=== PATIENT | male | born 2000 | race American Indian/Alaskan Native ===

== ENCOUNTER 2019-03-22 19:41 | Emergency (ER) | payer SELFPAY ==
--- NOTE | 2019-03-22 21:20 | Emergency Department Report ---
HPI - General Chief Complaint: Urogenital-Male Time Seen by Provider: 03/22/19 21:02 - HPI HPI: Room 2 The pt is a 18 y/o M p/w a cc of scrotal swelling. Pt p/w scrotal/groin swelling x 1 week. Pt has a h/o the same 4 months ago but states it spontaneously resolved. Swelling returned 1 week ago. Pt denies n/v. last BM was 2-3 days ago and this is normal per family member at bedside. No fever ED Past Medical Hx - Past Medical History Previous Medical History?: Yes Additional medical history: Autism - Surgical History Past Surgical History?: No - Family History Family history: no significant - Social History Smoking Status: Never Smoker Substance Use Type: None - Medications Home Medications: Home Medications Medication Instructions Recorded Confirmed Last Taken Type traMADol [Ultram] 50 mg PO Q6HR PRN #10 tablet 03/22/19 Unknown Rx Docusate Sodium [Colace] 100 mg PO BID PRN #60 capsule 03/23/19 Unknown Rx ED Review of Systems ROS: Stated complaint: LARGE INGUINAL HERNIA/SWOLLEN TESTICLE Other details as noted in HPI Constitutional: denies: fever Eyes: denies: eye pain ENT: denies: throat pain Respiratory: no symptoms reported Cardiovascular: denies: chest pain Endocrine: no symptoms reported Gastrointestinal: denies: abdominal pain, nausea, vomiting Genitourinary: testicular pain Musculoskeletal: denies: back pain Neurological: denies: headache Physical Exam - Physical Exam Vital Signs: Vital Signs 03/22/19 03/22/19 19:49 20:07 Temperature 98.3 F Pulse Rate 115 H Respiratory 20 20 Rate O2 Sat by Pulse 100 Oximetry Physical Exam: GEN: WN autistic male lying on stretcher in NAD HEENT: EOMI NECK: Trachea midline LUNGS: No resp Distress CV: RRR no m/r/g ABD: S/NT/ND SKIN: No Diaphoresis NEURO: GCS 15 MS: no evidence of acute injury : Swelling in scrotum c/w inguinal hernia. Appears freely mobile and easily reducible ED Course Vital Signs 03/22/19 03/22/19 19:49 20:07 Temperature 98.3 F Pulse Rate 115 H Respiratory 20 20 Rate O2 Sat by Pulse 100 Oximetry ED Medical Decision Making - Lab Data Result diagrams: 03/22/19 21:20 03/22/19 21:20 - Radiology Data Radiology results: report reviewed (CT abd/pel, testicular u/s), image reviewed (CT abd/pel, testicular u/s) [facility] [address] [place] [address] Cat Scan Report Signed Patient: HARVINDER REYES MR#: [id number] : 2000 Acct:[id number] Age/Sex: 18 / M ADM Date: 03/22/19 Loc: ED Attending Dr: Ordering Physician: JESS DENT MD Date of Service: 03/22/19 Procedure(s): CT abdomen pelvis w con Accession Number(s): [id number] cc: JESS DENT MD CT ABDOMEN AND PELVIS WITH CONTRAST INDICATION / CLINICAL INFORMATION: right groin pain, scrotal swelling. TECHNIQUE: Axial CT images were obtained through the abdomen and pelvis after 100 mL Omnipaque [address] scans at this location are performed using CT dose reduction for ALARA by means of automated exposure control. COMPARISON: Ultrasound scrotum dated 03/22/19 FINDINGS: LOWER CHEST: No significant abnormality. LIVER: No significant abnormality. GALLBLADDER: Contracted. BILE DUCTS: No significant abnormality. PANCREAS: No significant abnormality. SPLEEN: No significant abnormality. ADRENALS: No significant abnormality. RIGHT KIDNEY and URETER: No significant abnormality. LEFT KIDNEY and URETER: No significant abnormality. STOMACH and SMALL BOWEL: Stomach is moderately distended with food material. No small bowel dilation. There are nondilated loops of small bowel within a very large right inguinal hernia. Small bowel mesentery and mesenteric vessels are also included in the hernia sac. COLON: Moderate amount of fecal material throughout the colon and rectum. APPENDIX: No significant abnormality. PERITONEUM: No free fluid. No free air. No fluid collection. LYMPH NODES: No significant adenopathy. AORTA and ARTERIES: No significant abnormality. IVC and VEINS: No significant abnormality. URINARY BLADDER: No significant abnormality. REPRODUCTIVE ORGANS: No significant abnormality. ADDITIONAL FINDINGS: None. SKELETAL SYSTEM: No significant abnormality. IMPRESSION: 1. Very large right inguinal hernia containing multiple loops of nondilated small bowel. No bowel obstruction. Signer Name: Annalisa Burgos MD Signed: 03/22/2019 11:21 PM Workstation Name: [id number] Transcribed By: DT Dictated By: Evans Burgos MD Electronically Authenticated By: Evans Burgos MD Signed Date/Time: 03/22/192320 DD/ 17 TD/TT: [facility] [address] [place] [address] Ultrasound Report Signed Patient: HARVINDER REYES MR#: [id number] : 2000 Acct:[id number] Age/Sex: 18 / M ADM Date: 03/22/19 Loc: ED Attending Dr: Ordering Physician: JESS DENT MD Date of Service: 03/22/19 Procedure(s): US testicular doppler comp Accession Number(s): [id number] cc: JESS DENT MD ULTRASOUND SCROTUM INDICATION / CLINICAL INFORMATION: groin pain. COMPARISON: None available. FINDINGS -- RIGHT TESTIS: Size = 2.9 x 2.2 x 4.0 cm. - Appearance: No significant abnormality. - Cyst or Mass: None. - Color Doppler Flow: No significant abnormality. EPIDIDYMIS: No significant abnormality. HYDROCELE: None. VARICOCELE: None demonstrated. FINDINGS -- LEFT TESTIS: Size = 3.1 x 2.0 x 3.7 cm. - Appearance: No significant abnormality. - Cyst or Mass: None. - Color Doppler Flow: No significant abnormality. EPIDIDYMIS: No significant abnormality. HYDROCELE: Tiny hydrocele. VARICOCELE: None demonstrated. ADDITIONAL FINDINGS: None. IMPRESSION: 1. Tiny left hydrocele. 2. No sonographic evidence for testicular torsion. Signer Name: Annalisa Burgos MD Signed: 03/22/2019 10:40 PM Workstation Name: [id number] Transcribed By: DT Dictated By: Evans Burgos MD Electronically Authenticated By: Evans Burgos MD Signed Date/Time: 03/22/192239 DD/ 37 TD/TT: - Differential Diagnosis inguinal hernia, epididymitis Critical care attestation.: If time is entered above; I have spent that time in minutes in the direct care of this critically ill patient, excluding procedure time. ED Disposition Clinical Impression: Inguinal hernia Disposition: DC-01 TO HOME OR SELFCARE Is pt being admited?: No Does the pt Need Aspirin: No Condition: Stable Instructions: Inguinal Hernia (ED) Prescriptions: Docusate Sodium [Colace] 100 mg PO BID PRN #60 capsule PRN Reason: Constipation traMADol [Ultram] 50 mg PO Q6HR PRN #10 tablet PRN Reason: Pain Referrals: RIAN QUIÑONEZ DO [Staff Physician] - [facility] (Dr Quiñonez is a surgeon. Please follow up with her for further evaluation of your Inguinal hernia) Time of Disposition: 00:44
[2019-03-22 21:36] LABS: Basophils % (Auto) 1.1 % (0.0-1.8); Eosinophils # (Auto) 0.4 K/mm3 (0.0-0.4); Hematocrit 41.3 % (35.5-45.6); Hemoglobin 13.8 gm/dl (11.8-15.2); Lymphocytes # (Auto) 1.4 K/mm3 (1.2-5.4); Lymphocytes % (Auto) 32.1 % (13.4-35.0); Mean Corpuscular HGB Conc 33 % (32-34); Mean Corpuscular Volume 82 fl (84-94); Monocytes # (Auto) 0.5 K/mm3 (0.0-0.8); Monocytes % (Auto) 11.2 % (0.0-7.3); Platelet Count 204 K/mm3 (140-440); Red Blood Count 5.05 M/mm3 (3.65-5.03); Red Cell Distribution Width 13.8 % (13.2-15.2)
[2019-03-22 21:58] LABS: Alanine Aminotransferase 8 units/L (7-56); Albumin 4.2 g/dL (3.9-5); BUN/Creatinine Ratio 16; Blood Urea Nitrogen 11 mg/dL (9-20); Calcium 8.8 mg/dL (8.4-10.2); Hemolysis Index 5
--- NOTE | 2019-03-22 22:44 | Ultrasound Report ---
ULTRASOUND SCROTUM INDICATION / CLINICAL INFORMATION: groin pain. COMPARISON: None available. FINDINGS -- RIGHT TESTIS: Size = 2.9 x 2.2 x 4.0 cm. - Appearance: No significant abnormality. - Cyst or Mass: None. - Color Doppler Flow: No significant abnormality. EPIDIDYMIS: No significant abnormality. HYDROCELE: None. VARICOCELE: None demonstrated. FINDINGS -- LEFT TESTIS: Size = 3.1 x 2.0 x 3.7 cm. - Appearance: No significant abnormality. - Cyst or Mass: None. - Color Doppler Flow: No significant abnormality. EPIDIDYMIS: No significant abnormality. HYDROCELE: Tiny hydrocele. VARICOCELE: None demonstrated. ADDITIONAL FINDINGS: None. IMPRESSION: 1. Tiny left hydrocele. 2. No sonographic evidence for testicular torsion. Signer Name: Annalisa Burgos MD Signed: 03/22/2019 10:40 PM Workstation Name: [id number]
--- NOTE | 2019-03-22 23:26 | Cat Scan Report ---
CT ABDOMEN AND PELVIS WITH CONTRAST INDICATION / CLINICAL INFORMATION: right groin pain, scrotal swelling. TECHNIQUE: Axial CT images were obtained through the abdomen and pelvis after 100 mL Omnipaque [address] scans at this location are performed using CT dose reduction for ALARA by means of automated exposure control. COMPARISON: Ultrasound scrotum dated 03/22/19 FINDINGS: LOWER CHEST: No significant abnormality. LIVER: No significant abnormality. GALLBLADDER: Contracted. BILE DUCTS: No significant abnormality. PANCREAS: No significant abnormality. SPLEEN: No significant abnormality. ADRENALS: No significant abnormality. RIGHT KIDNEY and URETER: No significant abnormality. LEFT KIDNEY and URETER: No significant abnormality. STOMACH and SMALL BOWEL: Stomach is moderately distended with food material. No small bowel dilation. There are nondilated loops of small bowel within a very large right inguinal hernia. Small bowel mes entery and mesenteric vessels are also included in the hernia sac. COLON: Moderate amount of fecal material throughout the colon and rectum. APPENDIX: No significant abnormality. PERITONEUM: No free fluid. No free air. No fluid collection. LYMPH NODES: No significant adenopathy. AORTA and ARTERIES: No significant abnormality. IVC and VEINS: No significant abnormality. URINARY BLADDER: No significant abnormality. REPRODUCTIVE ORGANS: No significant abnormality. ADDITIONAL FINDINGS: None. SKELETAL SYSTEM: No significant abnormality. IMPRESSION: 1. Very large right inguinal hernia containing multiple loops of nondilated small bowel. No bowel obs truction. Signer Name: Annalisa Burgos MD Signed: 03/22/2019 11:21 PM Workstation Name: [id number]
[2019-03-23 00:28] LABS: Bilirubin,Urine NEG (Negative); Blood,Urine NEG (Negative); Color,Urine Yellow (Yellow); Mucus,Urine FEW /HPF; Protein,Urine <15 mg/dL mg/dL (Negative)
[2019-03-23 05:52] VITALS: BP 108/71
== END 2019-03-23 01:00 | disposition home or self-care (01) ==
LOC: EDBD → ED 19:41
DX: K40.90 Unilateral inguinal hernia, without obstruction or gangrene, not specified as recurrent (principal); F84.0 Autistic disorder
CPT/HCPCS: 36415; 74177; 80053; 81001; 85025; 93975; 99284; Q9967

== ENCOUNTER 2019-03-23 06:57 | Emergency (ER) | payer SELFPAY ==
[2019-03-23 07:38] VITALS: BP 122/68
--- NOTE | 2019-03-23 07:58 | Emergency Department Report ---
ED Psych HPI - General Chief Complaint: Psych Stated Complaint: MH Time Seen by Provider: 03/23/19 07:49 Source: patient, family Mode of arrival: Ambulatory Limitations: Other (autism) - History of Present Illness Initial Comments: 18-year-old male with a past medical history of autism presents with his sister for psychiatric evaluation. Patient was just seen last night for a reducible inguinal hernia and discharged at 5:50 AM. While in the waiting room the sister states that he had a violent outbursts and he was cussing, hitting his head, exhibiting threatening behavior. Since being back in the department he is calm and cooperative. Suspect that patient and sister homeless. - Related Data Previous Rx's Medication Instructions Recorded Last Taken Type traMADol [Ultram] 50 mg PO Q6HR PRN #10 tablet 03/22/19 Unknown Rx Docusate Sodium [Colace] 100 mg PO BID PRN #60 capsule 03/23/19 Unknown Rx Allergies Allergy/AdvReac Type Severity Reaction Status Date / Time No Known Allergies Allergy Unverified 03/22/19 19:56 ED Review of Systems ROS: Stated complaint: MH Other details as noted in HPI Comment: All other systems reviewed and negative ED Past Medical Hx - Past Medical History Previous Medical History?: Yes Additional medical history: Autism - Surgical History Past Surgical History?: No - Social History Smoking Status: Never Smoker Substance Use Type: None - Medications Home Medications: Home Medications Medication Instructions Recorded Confirmed Last Taken Type traMADol [Ultram] 50 mg PO Q6HR PRN #10 tablet 03/22/19 Unknown Rx Docusate Sodium [Colace] 100 mg PO BID PRN #60 capsule 03/23/19 Unknown Rx ED Physical Exam - General Limitations: No Limitations - Other Other exam information: Gen.: No acute distress Head: Atraumatic Eyes: Normal appearance ENT: Moist mucous membranes Neck: Normal appearance, no posterior midline tenderness, no meningismus Chest: Clear to auscultation bilaterally Cardiovascular: Regular rate and rhythm Abdomen: Normal appearance, soft, nontender, no rebound or guarding, normal bowel sounds Back: Normal appearance, nontender Extremity: Full range of motion, normal appearance Neuro: Alert, clear speech, no focal motor or sensory deficit Psychiatric: Appropriate Skin: No rash ED Course Vital Signs 03/23/19 07:37 Temperature 98.1 F Pulse Rate 82 Respiratory 16 Rate Blood Pressure 122/68 [Right] O2 Sat by Pulse 97 Oximetry - Consultations Consultation #1: 03/23/19 07:59 mental health eval requested, [id number] not signed 03/23/19 08:36 outpatient resources for autism provided by [facility] ED Medical Decision Making - Medical Decision Making Patient presents with autism with an episode of negative behavior. History of autism and acting appropriately at this time. Patient given outpatient resources provided by [facility]. - Differential Diagnosis autism Critical Care Time: No Critical care attestation.: If time is entered above; I have spent that time in minutes in the direct care of this critically ill patient, excluding procedure time. ED Disposition Clinical Impression: Autism Disposition: DC-01 TO HOME OR SELFCARE Is pt being admited?: No Does the pt Need Aspirin: No Condition: Stable Instructions: Autism (ED) Additional Instructions: Follow-up with the resources provided by [facility]. Return if symptoms worsen as indicated by your discharge instructions. Referrals: outpatient, resources [Other] - 3-5 Days Time of Disposition: 08:37
== END 2019-03-23 08:51 | disposition home or self-care (01) ==
LOC: EDBD → EEVIPCON 06:57 → ED 06:57
DX: F84.0 Autistic disorder (principal)

== ENCOUNTER 2019-04-12 12:27 | Emergency (ER) | payer MEDICAID ==
--- NOTE | 2019-04-12 13:02 | Emergency Department Report ---
Blank Doc - Documentation Documentation: This is a 19-year-old male that presents with being aggressive. This initial assessment/diagnostic orders/clinical plan/treatment(s) is/are subject to change based on patient's health status, clinical progression and re- assessment by fellow clinical providers in the ED. Further treatment and workup at subsequent clinical providers discretion. Patient/guardians urged not to elope from the ED as their condition may be serious if not clinically assessed and managed. Initial orders include: 1- Patient sent to MAIN ED for further evaluation and treatment 2- clerical supervisor was notified to have patient be brought back [facility]. 3- RN was notified to keep patient as close range and observation until room available
[2019-04-12 15:31] LABS: BUN/Creatinine Ratio 13; Blood Urea Nitrogen 9 mg/dL (9-20); Calcium 9.4 mg/dL (8.4-10.2); Hemolysis Index 14
[2019-04-12 15:38] LABS: Basophils % (Auto) 0.6 % (0.0-1.8); Eosinophils % (Auto) 5.3 % (0.0-4.3); Hematocrit 46.5 % (35.5-45.6); Hemoglobin 15.2 gm/dl (11.8-15.2); Lymphocytes % (Auto) 33.6 % (13.4-35.0); Mean Corpuscular HGB Conc 33 % (32-34); Mean Corpuscular Volume 84 fl (84-94); Monocytes % (Auto) 8.9 % (0.0-7.3); Platelet Count 199 K/mm3 (140-440); Red Blood Count 5.56 M/mm3 (3.65-5.03); Red Cell Distribution Width 13.6 % (13.2-15.2)
[2019-04-12 15:39] LABS: Eosinophils # (Auto) 0.3 K/mm3 (0.0-0.4); Lymphocytes # (Auto) 1.7 K/mm3 (1.2-5.4); Monocytes # (Auto) 0.4 K/mm3 (0.0-0.8)
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
[2019-04-12 20:00] VITALS: BP 118/70
== END 2019-04-12 20:00 | disposition home or self-care (01) ==
LOC: EDBD → ED 12:27 → EEVIPCON 12:27 → ED 20:00
DX: K40.90 Unilateral inguinal hernia, without obstruction or gangrene, not specified as recurrent (principal); F81.9 Developmental disorder of scholastic skills, unspecified; F84.0 Autistic disorder
CPT/HCPCS: 36415; 80048; 80320; 82550; 85025; G0480